=== PATIENT | female | born 1950 | race Caucasian/White ===

== ENCOUNTER 2017-06-03 06:39 | Inpatient (IN) | payer MEDICARE ==
[~2017-06-03] VITALS: Ht 167.6 cm; Wt 90.7 kg
--- NOTE | 2017-06-03 06:55 | NUR ---
RN NOTES PT ARRIVED ON TO THE UNIT AT 0655 VIA MEG. PT IS A DIRECT ADMISSION FROM [facility]. PT COMPLAINS OF X2DAYS OF SOB AND COUGH. WILL ENDORSE TO DAY SHIFT NURSE FOR ADMISSION.
[2017-06-03 07:00] VITALS: BP 124/71
--- NOTE | 2017-06-03 07:30 | NUR ---
tele sewing machine tester: admission admitted this 66 yr old female pt from [facility] with dx: copd exacerbation. awake, a/ox4. pt able to ambulate using fww of her own. on o2 at 2l/min via n/c. no c/o sob, chest pain, or any discomfort at this time. oriented to room and surroundings. pt has advance directive and wishes no resuscitation as stated. called krista lopez to faxed her advance directive. called coral ([facility]) re: admission, awaiting orders. tele [id number], inspector machine cut glass aware.
[2017-06-03 08:00] VITALS: BP 116/64
[2017-06-03] MEDS ORDERED: FAMO20TA8 PO (08:08)
[2017-06-03] MEDS ORDERED: ALBU2.5V38 IH (08:08)
[2017-06-03] MEDS ORDERED: IPRA0.2S49 IH (08:08)
[2017-06-03] MEDS ORDERED: LORA-259 PO (08:08)
[2017-06-03] MEDS ORDERED: DIGO125T PO (08:08)
[2017-06-03] MEDS ORDERED: SERT100T PO (08:08)
[2017-06-03] MEDS ORDERED: DILT240C94 PO (08:08)
[2017-06-03] MEDS ORDERED: NICO1PAT45 TD (08:08)
[2017-06-03] MEDS ORDERED: NEO/3.5O LEFTEYE (08:08)
[2017-06-03] MEDS ORDERED: THIA100T70 PO (08:08)
[2017-06-03] MEDS ORDERED: ALBU18HF2 IH (08:08)
[2017-06-03] MEDS ORDERED: APIX5TAB PO (08:08)
[2017-06-03] MEDS ORDERED: FOLI1TAB16 PO (08:08)
[2017-06-03] MEDS ORDERED: MAG HYDROX/AL HYDROX/SIMETH 30 ML UDC PO PRN (08:30)
[2017-06-03] MEDS ORDERED: HYDROCODONE/APAP 5/325MG 1 EACH TABLET PO PRN (08:30)
[2017-06-03] MEDS ORDERED: IPRATROPIUM NEB FS 0.5 MG/2.5 ML AMPUL.NEB NEB PRN (08:30)
[2017-06-03] MEDS ORDERED: ZOLPIDEM TARTRATE 5 MG TABLET PO PRN (08:30)
[2017-06-03] MEDS ORDERED: ALBUTEROL FS 2.5 MG/3 ML VIAL.NEB NEB PRN (08:30)
[2017-06-03] MEDS ORDERED: ACETAMINOPHEN 325 MG TABLET PO PRN (08:30)
[2017-06-03] MEDS ORDERED: ONDANSETRON HCL/PF 4 MG/2 ML VIAL IVP PRN (08:30)
[2017-06-03] MEDS ORDERED: ALBUTEROL FS 2.5 MG/3 ML VIAL.NEB IH PRN (09:30)
[2017-06-03] MEDS ORDERED: LORAZEPAM 1 MG TABLET PO PRN (09:30)
[2017-06-03] MEDS ORDERED: IPRATROPIUM NEB FS 0.5 MG/2.5 ML AMPUL.NEB IH PRN (09:30)
[2017-06-03] MEDS ORDERED: ALBUTEROL SULFATE 8 GM HFA.AER.AD IH PRN (09:30)
--- NOTE | 2017-06-03 09:30 | NUR ---
tele mapping analyst: cardio consult seen and examined by dr. cortez with new orders. orders acknowledged. tele remains afib=[phone]. will continue to monitor.
[2017-06-03 09:32] LABS: BASOPHILS # (AUTO) 0.1 /CMM (0.0-0.2); BASOPHILS % (AUTO) 0.8 % (0.0-2.0); HEMATOCRIT 42 % (33-45); HEMOGLOBIN 13.9 g/dL (11.5-14.8); LYMPHOCYTES # (AUTO) 0.2 /CMM (0.8-4.8); LYMPHOCYTES % (AUTO) 2.3 % (20.0-44.0); MEAN CORPUSCULAR HEMOGLOBIN 31 PG (26.0-33.0); MEAN CORPUSCULAR HGB CONC 33 g/dl (31.0-36.0); MEAN CORPUSCULAR VOLUME 94 fL (82-100); MONOCYTES % (AUTO) 0.3 % (2.0-12.0); NEUTROPHILS # (AUTO) 7.2 /CMM (1.8-8.9); NEUTROPHILS % (AUTO) 96.6 % (43.0-81.0); PLATELET COUNT (AUTO) 157 /CMM (150-450); RDW COEFFICIENT OF VARIATION 14.4 (11.5-15.0); RED BLOOD CELL COUNT(AUTO) 4.46 MIL/uL (4.0-5.2); WHITE BLOOD COUNT (AUTO) 7.5 K/uL (4.3-11.0)
[2017-06-03 09:59] LABS: CREATININE 1.2 mg/dL (0.6-1.3); POTASSIUM 4.4 mmol/L (3.5-5.1)
--- NOTE | 2017-06-03 10:00 | NUR ---
tele geothermal operations manager: notes called krista abraham once more and spoke to jesus, informed her that i haven't received her advance directive yet. jesus will re-fax her advance directive.
[2017-06-03 10:05] LABS: ALBUMIN 3.7 g/dL (3.4-5.0); BILIRUBIN,TOTAL 0.3 mg/dL (0.2-1.0); MAGNESIUM 2.5 mg/dL (1.8-2.4); PHOSPHORUS 4.1 mg/dL (2.5-4.9); TOTAL PROTEIN, SERUM 7.2 g/dL (6.4-8.2)
--- NOTE | 2017-06-03 10:08 | NUR ---
tele nurse special: notes dr. holcomb here and informed md re: pt wishes to be dnr and pt has advance directive from assisted living facility, but waiting for them to fax it over to us, stated, "i will put that in."
[2017-06-03] MEDS: FOLIC ACID 1 MG TABLET PO SCH (10:14)
[2017-06-03] MEDS: APIXABAN 5 MG TABLET PO SCH ×2 (10:14→16:32)
[2017-06-03] MEDS: DILTIAZEM HCL CD 240 MG PO SCH (10:15)
[2017-06-03] MEDS: THIAMINE HCL 100 MG TABLET PO SCH (10:15)
[2017-06-03] MEDS: FAMOTIDINE (20 MG) 20 MG TABLET PO SCH ×2 (10:15→16:32)
[2017-06-03] MEDS: methylPREDNISolone SOD SUCC 125 MG/2ML VIAL IV SCH ×3 (10:28→17:00)
--- NOTE | 2017-06-03 10:30 | NUR ---
tele directory assistance operator: md visit seen and examined by dr. holcomb and verified pt's wishes to be dnr/dni as stated by pt.
--- NOTE | 2017-06-03 10:40 | NUR ---
tele bag filler: notes f/u made again to jesus ([facility]) re: advance directive, stated, "the admin is not here today, i don't have it here, i just have her face sheet." informed her that we need that copy fax to us.
[2017-06-03] MEDS: NEO/POLY/DEXA OPHTH OINT 3.5 GM TUBE LEFTEYE SCH ×2 (11:18→16:33)
[2017-06-03] MEDS: DIGOXIN 0.125 MG TABLET PO SCH (11:18)
[2017-06-03] MEDS: IPRATROPIUM NEB FS 0.5 MG/2.5 ML AMPUL.NEB NEB SCH ×5 (11:39→22:37)
[2017-06-03] MEDS: ALBUTEROL FS 2.5 MG/3 ML VIAL.NEB NEB SCH ×5 (11:39→22:37)
--- NOTE | 2017-06-03 14:00 | NUR ---
tele water maintenance supervisor: notes resting comfortable in bed. instructed to call for assistance. will monitor.
[2017-06-03] MEDS: AZITHROMYCIN 500 MG in IV D5W 250 ML IV SCH (14:11)
[2017-06-03 16:00] VITALS: BP 140/89
--- NOTE | 2017-06-03 17:00 | NUR ---
tele [facility] sales: notes resting comfortable in bed with no distress noted. tele afib 98 controlled at this time. call light within reach. will monitor.
--- NOTE | 2017-06-03 18:50 | NUR ---
tele feedmobile driver: notes sitting up in bed. tele afib 86 controlled. needs attended. instructed to call for assistance. will monitor.
--- NOTE | 2017-06-03 19:30 | NUR ---
RN OPENING NOTES RECEIVED REPORT FROM DAYSHIFT RN. FOUND Pt AWAKE, RESTING IN BED, WATCHING TV. NO S/S OF ACUTE DISTRESS OR SOB NOTED. Pt IS A/OX3, VERBAL, ABLE TO MAKE NEEDS KNOWN. ON TELE MONITOR. IV ACCESS ON LAC #20G, SL. SAFETY MEASURES IN PLACE. BED LOW, LOCKED, HOB ELEVATED, SIDE RAILS UP, CALL LIGHT AND BEDSIDE TABLE WITHIN REACH. WILL CONTINUE TO MONITOR Pt THROUGHOUT THE NIGHT FOR SAFETY.
[2017-06-03 20:00] VITALS: BP 124/65
[2017-06-04] VITALS (22 sets, daily range): BP systolic 95–159; BP diastolic 47–90
[2017-06-04] MEDS: ALBUTEROL FS 2.5 MG/3 ML VIAL.NEB NEB SCH ×5 (03:16→20:03)
[2017-06-04] MEDS: IPRATROPIUM NEB FS 0.5 MG/2.5 ML AMPUL.NEB NEB SCH ×5 (03:16→20:03)
--- NOTE | 2017-06-04 06:30 | NUR ---
RN CLOSING NOTES NO SIGNIFICANT CHANGES IN Pt's CONDITION. Pt EXPERIENCED SOME SOB DURING THE NIGHT. HAD BREATHING TREATMENT NEEDED AND REQUESTED. ALL OTHER NEEDS MET AND ATTENDED TO. SAFETY MEASURES IN PLACE. TELE READING AFIB/AFLUTTER 90's-120's. WILL ENDORSE TO DAYSHIFT RN FOR Pt's CESAR.
[2017-06-04 06:46] LABS: CHOLESTEROL 246 mg/dL (<200); HDL CHOLESTEROL 60 mg/dL (40-60); LDL 175 mg/dL (0-99); TRIGLYCERIDES 38 mg/dL (30-150)
[2017-06-04 06:47] LABS: TROPONIN I < 0.017 ng/mL (0.00-0.056)
[2017-06-04 06:48] LABS: EOSINOPHILS % (AUTO) 0.3 % (0.0-6.0); HEMATOCRIT 45 % (33-45); HEMOGLOBIN 14.7 g/dL (11.5-14.8); LYMPHOCYTES # (AUTO) 0.3 /CMM (0.8-4.8); LYMPHOCYTES % (AUTO) 2.8 % (20.0-44.0); MEAN CORPUSCULAR HEMOGLOBIN 31 PG (26.0-33.0); MEAN CORPUSCULAR HGB CONC 33 g/dl (31.0-36.0); MEAN CORPUSCULAR VOLUME 96 fL (82-100); MONOCYTES # (AUTO) 0.2 /CMM (0.1-1.30); MONOCYTES % (AUTO) 1.9 % (2.0-12.0); NEUTROPHILS # (AUTO) 11.1 /CMM (1.8-8.9); PLATELET COUNT (AUTO) 166 /CMM (150-450); RDW COEFFICIENT OF VARIATION 14.8 (11.5-15.0); RED BLOOD CELL COUNT(AUTO) 4.72 MIL/uL (4.0-5.2); WHITE BLOOD COUNT (AUTO) 11.7 K/uL (4.3-11.0)
[2017-06-04 06:52] LABS: ALANINE AMINOTRANSFERASE 31 U/L (12-78); ALBUMIN 3.9 g/dL (3.4-5.0); ALKALINE PHOSPHATASE 93 U/L (46-116); ASPARTATE AMINOTRANSFERASE 28 U/L (15-37); BILIRUBIN,TOTAL 0.3 mg/dL (0.2-1.0); CALCIUM, SERUM 9.5 mg/dL (8.5-10.1); CARBON DIOXIDE 29 mmol/L (21-32); CHLORIDE 103 mmol/L (98-107); CREATININE 1.1 mg/dL (0.6-1.3); GLUCOSE 143 mg/dL (74-106); MAGNESIUM 2.4 mg/dL (1.8-2.4); PHOSPHORUS 5.1 mg/dL (2.5-4.9); POTASSIUM 5.3 mmol/L (3.5-5.1); SODIUM SERUM 139 mmol/L (136-145); TOTAL PROTEIN, SERUM 7.6 g/dL (6.4-8.2); UREA NITROGEN, BLOOD 20 mg/dL (7-18)
--- NOTE | 2017-06-04 07:14 | NUR ---
telecom manager initial notes Received patient in bed, awake, sitting at the edge of the bed, on 02 @ 3lpm via AK 02 sat of 95%. Alert and oriented x 4, verbally responsive and able to make needs known. On tele monitor Afib with heart rate of 128, no complaint of pain or discomfort at this time. IV intact and patent SL only. kept patient clean and comfortable in bed, call light with in patient reach, will continue to monitor accordingly.
[2017-06-04 07:54] LABS: ABG OXYGEN SATURATION 95.3 % (92.0-98.5); ABG PH 7.122 (7.350-7.450); ABG PO2 98.1 mmHg (75.0-100.0); AaDO2 95.1 mmHg; COHb 0.2 % (0.5-1.5); MetHb 0.4 % (0.0-1.5); O2Hb 94.7 % (94.0-97.0); SITE, ABG Right Radial; VENT MODE, BG NC 4L
[2017-06-04] MEDS: FAMOTIDINE (20 MG) 20 MG TABLET PO SCH ×2 (08:05→16:59)
[2017-06-04] MEDS: NICOTINE PATCH (14MG) 14 MG PATCH.TD24 TD SCH (08:05)
[2017-06-04] MEDS: methylPREDNISolone SOD SUCC 125 MG/2ML VIAL IV SCH ×5 (08:05→21:13)
[2017-06-04] MEDS: SERTRALINE HCL 50 MG TABLET PO SCH (08:05)
[2017-06-04] MEDS: THIAMINE HCL 100 MG TABLET PO SCH (08:05)
[2017-06-04] MEDS: FOLIC ACID 1 MG TABLET PO SCH (08:05)
[2017-06-04] MEDS: DILTIAZEM HCL CD 240 MG PO SCH (08:06)
[2017-06-04] MEDS: DIGOXIN 0.125 MG TABLET PO SCH (08:06)
[2017-06-04] MEDS: NEO/POLY/DEXA OPHTH OINT 3.5 GM TUBE LEFTEYE SCH ×2 (08:07→17:00)
[2017-06-04] MEDS: APIXABAN 5 MG TABLET PO SCH ×2 (08:07→17:00)
--- NOTE | 2017-06-04 09:19 | NUR ---
telephone technician notes Solumedrol dose given this morning already.
--- NOTE | 2017-06-04 09:25 | NUR ---
RT NOTE PT PLACED ON BIPAP PER MD ORDER. SETTINGS PRESCRIBED 25/09 RR 14 40%. PT AWAKE AND ALERT. ALARMS SET PER PROTOCOL AND AUDIBLE. BIPAP PLUGGED IN TO RED OUTLET. AMBU BAG AT BED SIDE. NO DISTRESS NOTED. WILL CONTINUE TO MONITOR. Addendum: 06/04/17 at 0926 by ALMA MURRELL RT Amended: Links added.
--- NOTE | 2017-06-04 10:30 | NUR ---
telephone switchboard operatorrn allergy notes Patient was seen by dr. Allen and Dr Rios and made aware about patient ABG stat result and made aware. Dr. Burnette on site and informed as weel and per MD's to transfer patient to ICU via bed accompanied by other RN and connected to heart monitor. Dr. Rios made aware about patient code status of DNR/DNI and ordered on file. RT put patient on BIPAP machine. Transferred patient to ICU and report given to Shantell and to continue care.
--- NOTE | 2017-06-04 10:33 | NUR ---
LINUX SERVER ADMINISTRATOR RECEIVED PATIENT FROM [facility], KRISTI RN GAVE REPORT ALERT ORIENTED X 3 NO PAIN NOTED SOB NOTED PLACED ON BIPAP, SETTING DONE BY ALMA HOBSON MONITORED CLOSELY
[2017-06-04 11:04] LABS: ABG BASE EXCESS -2.1 mmol/L; ABG OXYGEN SATURATION 97.2 % (92.0-98.5); ABG PCO2 72.5 mmHg (35.0-45.0); ABG PH 7.203 (7.350-7.450); ABG PO2 111.8 mmHg (75.0-100.0); COHb 0.1 % (0.5-1.5); MetHb 0.4 % (0.0-1.5); O2Hb 96.7 % (94.0-97.0); PEEP,BG 5 cm H2O; SITE, ABG Right Radial; VENT MODE, BG ST 15/5 RR 14 40%
[2017-06-04] MEDS: AZITHROMYCIN 500 MG in IV D5W 250 ML IV SCH (13:55)
--- NOTE | 2017-06-04 15:55 | NUR ---
RT NOTE BIPAP SETTINGS CHANGED TO 20/5 PER MD PELEG ORDER. RN NOTIFIED. PT STABLE. PT AWAKE AND ALERT. NO DISTRESS NOTED.
[2017-06-04 16:15] LABS: ABG BASE EXCESS -2.6 mmol/L; ABG OXYGEN SATURATION 97.9 % (92.0-98.5); ABG PCO2 59.1 mmHg (35.0-45.0); ABG PH 7.255 (7.350-7.450); AaDO2 84.2 mmHg; COHb 0.3 % (0.5-1.5); MetHb 0.5 % (0.0-1.5); O2Hb 97.1 % (94.0-97.0); SITE, ABG Right Radial; VENT MODE, BG ST 20/5 RR 14 40%
--- NOTE | 2017-06-04 18:40 | NUR ---
KING MAKER ABLE TO EAT SMALL AMOUNT OF FOOD MAINTAINED ON BIPAP BSS NOT YET AVAILABLE
--- NOTE | 2017-06-04 20:00 | NUR ---
WELDER MACHINE OPERATOR NOTE RECEIVED PT SITTING UP IN BED ON BIPAP. TOLERATING THE SETTINGS. NO DISTRESS OR DISCOMFORT NOTED. DENIES PAIN. LT EYE PERIORBITAL AREA SWOLLEN. EYE IS ALSO WITH ERYTHEMA LOWER EYE LID. ON TELE A FLUTTER/A FIB HR 70"S. PT DIDN'T ATE DINNER MUCH. RT AT BED SIDE GIVING BREATHING TX. SIDE RAILS UP X 2 AND CALL LIGHT WITHIN REACH. VSS. CONTINUE TO MONITOR HER.
[2017-06-04] MEDS: BALANCED SALT IRRIG SOLN COMB2 15 ML BOTTLE LEFTEYE SCH (20:07)
[2017-06-05] VITALS (46 sets, daily range): BP systolic 88–161; BP diastolic 47–106
[2017-06-05] MEDS: ALBUTEROL FS 2.5 MG/3 ML VIAL.NEB NEB SCH ×7 (00:06→23:45)
[2017-06-05] MEDS: IPRATROPIUM NEB FS 0.5 MG/2.5 ML AMPUL.NEB NEB SCH ×7 (00:06→23:45)
--- NOTE | 2017-06-05 02:30 | NUR ---
ANIMAL SHELTER MANAGER NOTE PT WOKE WITH SOB, RESTLESS, ASKING FOR BREATHING TX. RT PAGED. CONTINUE TO MONITOR HER. ALSO GAVE HER FLUIDS TO DRINK.
--- NOTE | 2017-06-05 03:00 | NUR ---
FILM EDITOR NOTE PT GAVE B TX. PT IS MORE RELAXED. DENIES ANY DISCOMFORT OR SOB. KEPT BIBHEAVEN ON. ON TELE A '. CONTINUE TO MONITOR HER. Addendum: 06/05/17 at 0633 by ANNIE PARRY RN RT GAVE B TX.
[2017-06-05 05:05] LABS: HEMATOCRIT 43 % (33-45); LYMPHOCYTES # (AUTO) 0.4 /CMM (0.8-4.8); LYMPHOCYTES % (AUTO) 2.2 % (20.0-44.0); MEAN CORPUSCULAR HEMOGLOBIN 31 PG (26.0-33.0); MEAN CORPUSCULAR HGB CONC 33 g/dl (31.0-36.0); MEAN CORPUSCULAR VOLUME 96 fL (82-100); MONOCYTES # (AUTO) 0.3 /CMM (0.1-1.30); MONOCYTES % (AUTO) 1.6 % (2.0-12.0); NEUTROPHILS # (AUTO) 15.7 /CMM (1.8-8.9); NEUTROPHILS % (AUTO) 96.2 % (43.0-81.0); PLATELET COUNT (AUTO) 155 /CMM (150-450); RDW COEFFICIENT OF VARIATION 14.9 (11.5-15.0); RED BLOOD CELL COUNT(AUTO) 4.47 MIL/uL (4.0-5.2); WHITE BLOOD COUNT (AUTO) 16.3 K/uL (4.3-11.0)
[2017-06-05 05:25] LABS: CALCIUM, SERUM 9.3 mg/dL (8.5-10.1); CREATININE 1.2 mg/dL (0.6-1.3); MAGNESIUM 2.5 mg/dL (1.8-2.4); PHOSPHORUS 4.7 mg/dL (2.5-4.9); POTASSIUM 5.7 mmol/L (3.5-5.1)
--- NOTE | 2017-06-05 06:33 | NUR ---
LOSS PREVENTION CONSULTANT NOTE PT IN BED ASLEEP IN HIGH SKINNER POSITION. REMAIN ON BIPAP. TOLERATING IT WELL, NO DISTRESS OR DISCOMFORT NOTED. ON MONITOR A FIB HR 88 CONTROLLED. SIDE RAILS UP X 2 AND CALL LIGHT WITHIN REACH. WILL ENDORSE TO DAY SHIFT NURSE FOR CONTINUE TO CARE.
--- NOTE | 2017-06-05 07:30 | NUR ---
WIND TECHNICIAN INITIAL NOTE RECEIVED PT SITTING UP IN BED ON BIPAP. TOLERATING THE SETTINGS. NO DISTRESS OR DISCOMFORT NOTED. DENIES PAIN. LT EYE PERIORBITAL AREA SWOLLEN. EYE IS ALSO WITH ERYTHEMA LOWER EYE LID. ON TELE MONITORING A-FIB 85 HR. SIDE RAILS UP X 2 AND CALL LIGHT WITHIN REACH. BED IN LOW AND LOCKED POSITION, WILL CONTINUE TO MONITOR.
[2017-06-05] MEDS ORDERED: IV NS 0.9% 1,000 ML IV PRN (07:46)
--- NOTE | 2017-06-05 08:40 | NUR ---
PARTY PLAN SALES HOST/HOSTESS NOTES PATIENT OFF BIPAP AT THIS TIME 4L NC TOLERATING WELL.
[2017-06-05] MEDS: SERTRALINE HCL 50 MG TABLET PO SCH (08:45)
[2017-06-05] MEDS: NICOTINE PATCH (14MG) 14 MG PATCH.TD24 TD SCH (08:45)
[2017-06-05] MEDS: FOLIC ACID 1 MG TABLET PO SCH (08:45)
[2017-06-05] MEDS: methylPREDNISolone SOD SUCC 125 MG/2ML VIAL IV SCH ×4 (08:45→21:00)
[2017-06-05] MEDS: THIAMINE HCL 100 MG TABLET PO SCH (08:46)
[2017-06-05] MEDS: FAMOTIDINE (20 MG) 20 MG TABLET PO SCH ×2 (08:46→17:37)
[2017-06-05] MEDS: APIXABAN 5 MG TABLET PO SCH ×2 (08:46→17:37)
[2017-06-05] MEDS: DIGOXIN 0.125 MG TABLET PO SCH (08:46)
[2017-06-05] MEDS: NEO/POLY/DEXA OPHTH OINT 3.5 GM TUBE LEFTEYE SCH ×2 (08:47→17:37)
[2017-06-05] MEDS: BALANCED SALT IRRIG SOLN COMB2 15 ML BOTTLE LEFTEYE SCH ×2 (08:47→17:37)
[2017-06-05] MEDS: DILTIAZEM HCL CD 240 MG PO SCH (09:00)
[2017-06-05 10:08] LABS: ABG BASE EXCESS 1.3 mmol/L; ABG OXYGEN SATURATION 95.2 % (92.0-98.5); ABG PCO2 56.9 mmHg (35.0-45.0); ABG PO2 86.2 mmHg (75.0-100.0); AaDO2 104.5 mmHg; COHb 0.3 % (0.5-1.5); MetHb 0.3 % (0.0-1.5); O2Hb 94.6 % (94.0-97.0); SITE, ABG Right Radial; VENT MODE, BG N/C 4L/MIN
--- NOTE | 2017-06-05 10:10 | NUR ---
GROUP LEADER SEMICONDUCTOR PROCESSING NOTES PATIENTS ABG DONE, DR RODAS AWARE, OK TO KEEP BIPAP OFF.
--- NOTE | 2017-06-05 10:39 | NUR ---
FINANCIAL SERVICES CONSULTANT NOTES PATIENTS REQUESTING TO BE BACK ON BIPAP, ANXIOUS ABOUT HER BREATHING. DR ANN AWARE AND SEEN PATIENT AT BEDSIDE.
[2017-06-05] MEDS ORDERED: IV NS 0.9% 1,000 ML BAG IV ONE (11:00)
[2017-06-05] MEDS: AZITHROMYCIN 500 MG in IV D5W 250 ML IV SCH (12:07)
--- NOTE | 2017-06-05 19:00 | NUR ---
COLOR STRIPPER END NOTES REPORT GIVEN TO GOKUL GRAFF FOR CONTINUITY OF CARE, ALL NEEDS ATTENDED TO, PATIENT CLEANED. ON BIPAP TOLERATING SETTINGS.
--- NOTE | 2017-06-05 19:30 | NUR ---
ICU/RN. RECEIVED PT.SITTING ON BED,ON BIPAP RATE OF 14,REQUESTING FOR BREATHING TREATMENT FOR SHORTNESS OF BREATH.LUNGS SOUND DIMINISHED THROUGHOUT.MONITOR SHOWS AFIB
--- NOTE | 2017-06-05 20:23 | NUR ---
PT IS AWAKE AND ALERT ON BIPAP. NO RESP DISTRESS. PT TOLERATING SETTINGS. PT IS RECEIVING Q4 BREATHING TX. BIPAP ALARMS SET AND AUDIBLE. AMBU BAG AT BEDSIDE. BIPAP PLUGGED INTO RED OUTLET. WILL CONTINUE TO MONITOR. Addendum: 06/05/17 at 2023 by CORY LOPEZ RT Amended: Links added.
[2017-06-06] VITALS (31 sets, daily range): BP systolic 103–132; BP diastolic 60–86
[2017-06-06] MEDS: ALBUTEROL FS 2.5 MG/3 ML VIAL.NEB NEB SCH ×6 (03:30→23:33)
[2017-06-06] MEDS: IPRATROPIUM NEB FS 0.5 MG/2.5 ML AMPUL.NEB NEB SCH ×6 (03:30→23:33)
[2017-06-06 05:09] LABS: HEMATOCRIT 42 % (33-45); HEMOGLOBIN 13.6 g/dL (11.5-14.8); LYMPHOCYTES # (AUTO) 0.4 /CMM (0.8-4.8); LYMPHOCYTES % (AUTO) 2.5 % (20.0-44.0); MEAN CORPUSCULAR HEMOGLOBIN 31 PG (26.0-33.0); MEAN CORPUSCULAR HGB CONC 33 g/dl (31.0-36.0); MEAN CORPUSCULAR VOLUME 95 fL (82-100); MONOCYTES # (AUTO) 0.2 /CMM (0.1-1.30); MONOCYTES % (AUTO) 1.4 % (2.0-12.0); NEUTROPHILS % (AUTO) 96.1 % (43.0-81.0); PLATELET COUNT (AUTO) 149 /CMM (150-450); RDW COEFFICIENT OF VARIATION 14.4 (11.5-15.0); RED BLOOD CELL COUNT(AUTO) 4.38 MIL/uL (4.0-5.2); WHITE BLOOD COUNT (AUTO) 16.7 K/uL (4.3-11.0)
[2017-06-06 05:24] LABS: ALBUMIN 3.3 g/dL (3.4-5.0); BILIRUBIN,TOTAL 0.2 mg/dL (0.2-1.0); CALCIUM, SERUM 8.9 mg/dL (8.5-10.1); CREATININE 1.1 mg/dL (0.6-1.3); MAGNESIUM 2.3 mg/dL (1.8-2.4); PHOSPHORUS 3.6 mg/dL (2.5-4.9); POTASSIUM 4.6 mmol/L (3.5-5.1); TOTAL PROTEIN, SERUM 6.3 g/dL (6.4-8.2)
--- NOTE | 2017-06-06 07:00 | NUR ---
ICU/RN SLEPT MOST OF THE NOC FR.12M/N TO 0600.SITTING UPRIGHT IN BED,C/O SHORTNESS OF BREATH AND WANTING BREATHING [place].0705 RT AT BEDSIDE.MONITOR SHOWS AFIBW/ RVRESP WHEN PT IS MOVING IN BED.
--- NOTE | 2017-06-06 08:30 | NUR ---
PATIENT REMOVED FROM BIPAP AND PLACED ON 3L N/C JODIE WELL.
[2017-06-06] MEDS: methylPREDNISolone SOD SUCC 125 MG/2ML VIAL IV SCH ×4 (09:05→20:59)
[2017-06-06] MEDS: DILTIAZEM HCL CD 240 MG PO SCH (09:05)
[2017-06-06] MEDS: SERTRALINE HCL 50 MG TABLET PO SCH (09:05)
[2017-06-06] MEDS: THIAMINE HCL 100 MG TABLET PO SCH (09:05)
[2017-06-06] MEDS: FAMOTIDINE (20 MG) 20 MG TABLET PO SCH ×2 (09:05→17:23)
[2017-06-06] MEDS: FOLIC ACID 1 MG TABLET PO SCH (09:05)
[2017-06-06] MEDS: APIXABAN 5 MG TABLET PO SCH ×2 (09:06→17:23)
[2017-06-06] MEDS: DIGOXIN 0.125 MG TABLET PO SCH (09:06)
[2017-06-06] MEDS: NICOTINE PATCH (14MG) 14 MG PATCH.TD24 TD SCH (09:11)
[2017-06-06] MEDS: BALANCED SALT IRRIG SOLN COMB2 15 ML BOTTLE LEFTEYE SCH ×2 (09:11→17:24)
[2017-06-06] MEDS: NEO/POLY/DEXA OPHTH OINT 3.5 GM TUBE LEFTEYE SCH ×2 (09:11→17:24)
--- NOTE | 2017-06-06 09:11 | NUR ---
RN NOTES PT OFF BIPAP. ON O2 3LPM VIA NC AT THIS TIME. SATING 96%. PT NOTED WITH SOME SHORTNESS OF BREATH, BUT VERBALIZED SHE'S FINE. WILL MONITOR CLOSELY
--- NOTE | 2017-06-06 09:30 | NUR ---
RN NOTES DR RODAS AT BEDSIDE. PT WAS SEEN AND EVLAUATED. PT ON O2@3LPM VIA NC. SATING 94-97% AT THIS TIME. AFIB 120'S ON QUARTZ MINER. MD DISCUSSED PLAN OF CARE TO PT. PER DR RODAS KEEP ON NC TOLERATED, AND CHECK ABG SHORTLY.
[2017-06-06] MEDS: AZITHROMYCIN 500 MG in IV D5W 250 ML IV SCH (12:22)
[2017-06-06 13:24] LABS: ABG BASE EXCESS 1.1 mmol/L; ABG OXYGEN SATURATION 95.7 % (92.0-98.5); ABG PH 7.362 (7.350-7.450); ABG PO2 82.7 mmHg (75.0-100.0); AaDO2 88.1 mmHg; COHb 0.3 % (0.5-1.5); MetHb 0.3 % (0.0-1.5); O2Hb 95.1 % (94.0-97.0); SITE, ABG Right Radial; VENT MODE, BG NASAL CANNULA
--- NOTE | 2017-06-06 13:28 | NUR ---
RT NOTE: ABG RESULTS SHOWN TO . WILL KEEP PATIENT OFF BIPAP DURING THE DAY. PER MD PATIENT IS TO BE PLACED ON BIPAP AT NIGHT AND PRN. WILL ENDORSE TO NIGHT RT.
[2017-06-06] MEDS ORDERED: NEOMY SULF/BACITRAC ZN/POLY 15 GM TUBE TP PRN (16:30)
--- NOTE | 2017-06-06 19:30 | NUR ---
RECEIVED PATIENT SITTING IN BED, PATIENT IS AAO, CURRENTLY ON 3L VIA NASAL CANNULA. CONTINUE TO MONITOR
--- NOTE | 2017-06-06 20:30 | NUR ---
PATIENT VERBALIZED SOB, AND ASKED FOR RESPIRATORY TREATMENT, RT NOTIFIED
--- NOTE | 2017-06-06 20:33 | NUR ---
PT RECEIVED ON NC 3L. PT IS AWAKE AND ALERT. GAVE BREATHING TX AND AFTER TX PT ASKED TO BE PLACED BACK ON BIPAP DO TO SOB. Addendum: 06/06/17 at 2034 by CORY LOPEZ RT Amended: Links added.
[2017-06-06] MEDS: MUPIROCIN OINT 2% 22 GM TUBE SCH (21:00)
--- NOTE | 2017-06-06 21:00 | NUR ---
PATIENT IS PLACED ON BIPAP ORDERED NIGHTLY, SCHEDULED MEDICATIONS GIVEN. EDUCATION/INSTRUCTIONS GIVEN . CALL LIGHT WITHIN REACH INSTRUCTED TO CALL FOR ANY ASSISTANCE
[2017-06-07] VITALS (30 sets, daily range): BP systolic 104–157; BP diastolic 53–107
[2017-06-07] MEDS: IPRATROPIUM NEB FS 0.5 MG/2.5 ML AMPUL.NEB NEB SCH ×7 (03:12→23:42)
[2017-06-07] MEDS: ALBUTEROL FS 2.5 MG/3 ML VIAL.NEB NEB SCH ×7 (03:12→23:42)
[2017-06-07 05:30] LABS: HEMATOCRIT 44 % (33-45); HEMOGLOBIN 14.4 g/dL (11.5-14.8); LYMPHOCYTES # (AUTO) 0.6 /CMM (0.8-4.8); LYMPHOCYTES % (AUTO) 4.7 % (20.0-44.0); MEAN CORPUSCULAR HEMOGLOBIN 32 PG (26.0-33.0); MEAN CORPUSCULAR HGB CONC 33 g/dl (31.0-36.0); MEAN CORPUSCULAR VOLUME 95 fL (82-100); MONOCYTES # (AUTO) 0.2 /CMM (0.1-1.30); MONOCYTES % (AUTO) 1.5 % (2.0-12.0); NEUTROPHILS # (AUTO) 12.5 /CMM (1.8-8.9); NEUTROPHILS % (AUTO) 93.8 % (43.0-81.0); PLATELET COUNT (AUTO) 145 /CMM (150-450); RDW COEFFICIENT OF VARIATION 14.7 (11.5-15.0); RED BLOOD CELL COUNT(AUTO) 4.58 MIL/uL (4.0-5.2); WHITE BLOOD COUNT (AUTO) 13.4 K/uL (4.3-11.0)
[2017-06-07 05:37] LABS: CREATININE 1.1 mg/dL (0.6-1.3); POTASSIUM 4.5 mmol/L (3.5-5.1)
--- NOTE | 2017-06-07 07:00 | NUR ---
RN NOTES RECEIVED PT ON BED, A/Ox4, ON BIPAP AT THIS TIME , RENUKA DOMINGUEZ, ON TELE A.FIB HR IN 90'S , O2 SAT 98%, SR UP x3, CALL LIGHTS WITHIN EASY REACH, CONTINUE TO MONITOR CLSOELY .
[2017-06-07] MEDS: MUPIROCIN OINT 2% 22 GM TUBE SCH ×2 (08:07→21:17)
[2017-06-07] MEDS: BALANCED SALT IRRIG SOLN COMB2 15 ML BOTTLE LEFTEYE SCH ×2 (08:08→16:18)
[2017-06-07] MEDS: NEO/POLY/DEXA OPHTH OINT 3.5 GM TUBE LEFTEYE SCH ×2 (08:09→16:18)
[2017-06-07] MEDS: SERTRALINE HCL 50 MG TABLET PO SCH (08:09)
[2017-06-07] MEDS: DILTIAZEM HCL CD 240 MG PO SCH (08:11)
[2017-06-07] MEDS: THIAMINE HCL 100 MG TABLET PO SCH (08:11)
[2017-06-07] MEDS: DIGOXIN 0.125 MG TABLET PO SCH (08:12)
[2017-06-07] MEDS: FAMOTIDINE (20 MG) 20 MG TABLET PO SCH ×2 (08:12→16:17)
[2017-06-07] MEDS: methylPREDNISolone SOD SUCC 125 MG/2ML VIAL IV SCH ×4 (08:12→21:13)
[2017-06-07] MEDS: NICOTINE PATCH (14MG) 14 MG PATCH.TD24 TD SCH (08:13)
[2017-06-07] MEDS: APIXABAN 5 MG TABLET PO SCH ×2 (08:14→16:18)
[2017-06-07] MEDS: FOLIC ACID 1 MG TABLET PO SCH (08:14)
--- NOTE | 2017-06-07 11:00 | NUR ---
RN NOTES PT IS OUT OF BED TO BEDSIDE COMMODE, NO DISTRESS NOTED . CONTINUE TO MONITOR .
[2017-06-07] MEDS: AZITHROMYCIN 500 MG in IV D5W 250 ML IV SCH (11:40)
[2017-06-07] MEDS: GUAIFENESIN LA 600 MG TABLET.SA PO SCH ×2 (14:33→21:19)
--- NOTE | 2017-06-07 14:36 | NUR ---
RN NOTES DR RODAS NOTIFIED REGARDING ABG RESULTS , NO NEW ORDER GIVEN . CONTINUE TO MONITOR .
--- NOTE | 2017-06-07 15:00 | NUR ---
RN NOTES PT ON 3L O2 N/C , ENCOURAGED DEEP AND SLOW BREATHING , STATED FEEL MUCH BETTER THAT A FEW DAYS AGO , NO DISTRESS NOTED .
[2017-06-07 15:02] LABS: ABG BASE EXCESS 2.9 mmol/L; ABG OXYGEN SATURATION 96.1 % (92.0-98.5); ABG PH 7.375 (7.350-7.450); ABG PO2 86.2 mmHg (75.0-100.0); AaDO2 67.8 mmHg; COHb 0.2 % (0.5-1.5); MetHb 0.3 % (0.0-1.5); O2Hb 95.6 % (94.0-97.0); VENT MODE, BG N-C
[2017-06-07] MEDS ORDERED: ACETYLCYSTEINE 10% SOLN 400 MG/4 ML VIAL NEB SCH (15:30)
--- NOTE | 2017-06-07 18:00 | NUR ---
RN NOTES NO SOB NOTED, L AC AND AND R HAND IV SITE G 20 CDI, RESTING IN BED , ON 3L O2 N/C , SR UP x3, BED LOCKED AND IN LOWEST POSITION , WILL ENDORSE TO ADMINISTRATIVE UNDERWRITER NURSE FOR CESAR.
--- NOTE | 2017-06-07 19:30 | NUR ---
ICU/RN RECEIVED PT AWAKE ALERT SITTING ON SIDE OF BED,RECEIVING BREATHING TX.PLACED ON N/C 3LPM AFTER.OFFERS NO COMPLAINTS,DENIES SHORTNESS OF BREATH.MONITOR A-FIB W/ RVR KSENIA.WHEN PT MOVES IN BED,RATE 109-128/MIN.
--- NOTE | 2017-06-07 23:40 | NUR ---
ICU/RN PLACED ON BIPAP PER PT'S REQUEST,RATE OF 14,40%.
[2017-06-08] VITALS (21 sets, daily range): BP systolic 97–154; BP diastolic 60–96
[2017-06-08] MEDS: IPRATROPIUM NEB FS 0.5 MG/2.5 ML AMPUL.NEB NEB SCH ×6 (03:54→23:09)
[2017-06-08] MEDS: ALBUTEROL FS 2.5 MG/3 ML VIAL.NEB NEB SCH ×6 (03:54→23:09)
--- NOTE | 2017-06-08 04:29 | NUR ---
PT IS AWAKE AND ALERT ON BIPAP. NO RESP DISTRESS. PT TOLERATING SETTINGS. PT IS RECEIVING Q4 BREATHING TX. BIPAP ALARMS SET AND AUDIBLE. AMBU BAG AT BEDSIDE. BIPAP PLUGGED INTO RED OUTLET. WILL CONTINUE TO MONITOR. Addendum: 06/08/17 at 0430 by KYLE WITT RT Amended: Links added.
[2017-06-08 04:58] LABS: BASOPHILS % (AUTO) 0.1 % (0.0-2.0); HEMATOCRIT 41 % (33-45); HEMOGLOBIN 13.7 g/dL (11.5-14.8); LYMPHOCYTES # (AUTO) 0.5 /CMM (0.8-4.8); MEAN CORPUSCULAR HEMOGLOBIN 31 PG (26.0-33.0); MEAN CORPUSCULAR HGB CONC 33 g/dl (31.0-36.0); MEAN CORPUSCULAR VOLUME 95 fL (82-100); MONOCYTES # (AUTO) 0.2 /CMM (0.1-1.30); NEUTROPHILS # (AUTO) 10.8 /CMM (1.8-8.9); NEUTROPHILS % (AUTO) 93.9 % (43.0-81.0); PLATELET COUNT (AUTO) 132 /CMM (150-450); RDW COEFFICIENT OF VARIATION 14.5 (11.5-15.0); RED BLOOD CELL COUNT(AUTO) 4.35 MIL/uL (4.0-5.2); WHITE BLOOD COUNT (AUTO) 11.5 K/uL (4.3-11.0)
[2017-06-08 05:03] LABS: CALCIUM, SERUM 8.6 mg/dL (8.5-10.1); CREATININE 0.9 mg/dL (0.6-1.3); POTASSIUM 5.3 mmol/L (3.5-5.1)
[2017-06-08 05:54] LABS: BAND % (MANUAL) 1 % (0.0-5.0); LYMPHOCYTES % (MANUAL) 2 % (16-48); MONOCYTES % (MANUAL) 3 % (0-11.0); NEUTROPHILS % (MANUAL) 94 (42-76)
--- NOTE | 2017-06-08 06:00 | NUR ---
ICU/RN PT SLEPT FROM 12M/N-0630.TOLERATING BIPAP WELL.REFUSING BATH AT THIS TIME.MONITOR UNCHANGED
--- NOTE | 2017-06-08 08:05 | NUR ---
RN NOTES RECEIVED PT IN BED. CURRENTLY ON BIPAP. AFEBRILE. NO ACUTE DISTRESS NOTED. AFIB ON HAND WORKER HR 87. IV SITES CDI, FLUSHED WITH NS PATENT. KEPT COMFORTABLE. WILL CONT TO MONITOR.
[2017-06-08] MEDS: APIXABAN 5 MG TABLET PO SCH ×2 (08:39→17:38)
[2017-06-08] MEDS: BALANCED SALT IRRIG SOLN COMB2 15 ML BOTTLE LEFTEYE SCH ×2 (08:40→17:38)
[2017-06-08] MEDS: NEO/POLY/DEXA OPHTH OINT 3.5 GM TUBE LEFTEYE SCH ×2 (08:40→17:38)
[2017-06-08] MEDS: MUPIROCIN OINT 2% 22 GM TUBE SCH ×2 (08:41→21:48)
[2017-06-08] MEDS: methylPREDNISolone SOD SUCC 125 MG/2ML VIAL IV SCH ×4 (08:47→21:46)
[2017-06-08] MEDS: NICOTINE PATCH (14MG) 14 MG PATCH.TD24 TD SCH (08:47)
[2017-06-08] MEDS: THIAMINE HCL 100 MG TABLET PO SCH (10:03)
[2017-06-08] MEDS: FOLIC ACID 1 MG TABLET PO SCH (10:03)
[2017-06-08] MEDS: SERTRALINE HCL 50 MG TABLET PO SCH (10:04)
[2017-06-08] MEDS: FAMOTIDINE (20 MG) 20 MG TABLET PO SCH ×2 (10:04→17:38)
[2017-06-08] MEDS: DILTIAZEM HCL CD 240 MG PO SCH (10:05)
[2017-06-08] MEDS: DIGOXIN 0.125 MG TABLET PO SCH (10:05)
[2017-06-08] MEDS: GUAIFENESIN LA 600 MG TABLET.SA PO SCH ×2 (10:07→21:48)
--- NOTE | 2017-06-08 12:30 | NUR ---
RN NOTES PT SEEN BY DR RODAS AT BEDSIDE, PT WAS EVALUATED. VS STABLE AFIB ON MONITOR. PER DR RODAS OK TO TRANSFER TO [facility].
--- NOTE | 2017-06-08 13:40 | NUR ---
RN NOTES PT RANSFERRED TO [facility] ROOM 107-1 [place] GIVEN TO NURSE CONTRERAS FOR CONTINUITY OF CARE. ALL BELONGINGS SENT WITH PATIENT. NO ACUTE CHANGE IN CONDITION. PT STABLE AT THIS TIME.
--- NOTE | 2017-06-08 19:10 | NUR ---
RN INITIAL NOTES RECEIVED PATIENT ON 2LPM OF O2 VIA NC, PATIENT EXHIBITS SOB WITH EXERTION. REST PERIODS ENCOURAGED. PATIENT COMPLAINING OF CHEST TIGHTNESS AND INABILITY TO EXPECTORATE, NON PRODUCTIVE COUGH NOTED. DIMINISHED BREATH SOUNDS THROUGHOUT WITH WHEEZING ON LEFT UPPER LOBE. BREATHING TREATMENT COORDINATED WITH RT SCHEDULED. PATIENT'S NEEDS ANTICIPATED AND MET. SAFETY AND COMFORT ENSURED. BED IN LOW AND LOCKED POSITION. CALL LIGHT IN REACH. Addendum: 06/09/17 at 0332 by EDUARDA HORVATH RN AFIB AT 78.
--- NOTE | 2017-06-08 19:25 | NUR ---
PATIENT TOLERATED TREATMENT TO LEFT EYE. NO SX/SX OF CARDIO PULMONARY DISTRESS NOTED AT THIS POINT AND TIME.
--- NOTE | 2017-06-08 23:14 | NUR ---
RN NOTES PATIENT PLACED ON BIPAP, Fi02 OF 35%. PATIENT WITH DIFFICULTY COUGHING OUT SECRETIONS, NON-PRODUCTIVE COUGH, PATIENT COMPLAINING OF CHEST TIGHTNESS. BREATHING TREATMENT ORDERED. WILL CONTINUE TO MONITOR.
[2017-06-09] VITALS (7 sets, daily range): BP systolic 117–141; BP diastolic 69–87
[2017-06-09] MEDS: ALBUTEROL FS 2.5 MG/3 ML VIAL.NEB NEB SCH ×5 (03:03→23:27)
[2017-06-09] MEDS: IPRATROPIUM NEB FS 0.5 MG/2.5 ML AMPUL.NEB NEB SCH ×5 (03:03→23:27)
[2017-06-09 06:36] LABS: HEMATOCRIT 41 % (33-45); HEMOGLOBIN 13.7 g/dL (11.5-14.8); LYMPHOCYTES # (AUTO) 0.6 /CMM (0.8-4.8); LYMPHOCYTES % (AUTO) 4.6 % (20.0-44.0); MEAN CORPUSCULAR HEMOGLOBIN 32 PG (26.0-33.0); MEAN CORPUSCULAR HGB CONC 33 g/dl (31.0-36.0); MEAN CORPUSCULAR VOLUME 94 fL (82-100); MONOCYTES # (AUTO) 0.2 /CMM (0.1-1.30); MONOCYTES % (AUTO) 1.2 % (2.0-12.0); NEUTROPHILS # (AUTO) 12.1 /CMM (1.8-8.9); NEUTROPHILS % (AUTO) 94.2 % (43.0-81.0); PLATELET COUNT (AUTO) 136 /CMM (150-450); RDW COEFFICIENT OF VARIATION 14.3 (11.5-15.0); RED BLOOD CELL COUNT(AUTO) 4.35 MIL/uL (4.0-5.2); WHITE BLOOD COUNT (AUTO) 12.9 K/uL (4.3-11.0)
--- NOTE | 2017-06-09 06:40 | NUR ---
RN CLOSING NOTES PATIENT WITH NO ACUTE DISTRESS OBSERVED OVERNIGHT. SLEPT COMFORTABLY WITH BIPAP IN PLACE. AFIB-AFLUTTER WITH HR AT 80. SAFETY AND COMFORT AND ENSURED. NEEDS ANTICIPATED AND MET. CALL LIGHT KEPT WITHIN REACH. WILL ENDORSE ACCORDINGLY FOR CONTINUITY OF CARE.
[2017-06-09 06:48] LABS: CALCIUM, SERUM 8.6 mg/dL (8.5-10.1); CREATININE 0.8 mg/dL (0.6-1.3); POTASSIUM 4.5 mmol/L (3.5-5.1)
[2017-06-09] MEDS: methylPREDNISolone SOD SUCC 125 MG/2ML VIAL IV SCH ×4 (09:07→21:09)
[2017-06-09] MEDS: FOLIC ACID 1 MG TABLET PO SCH (09:08)
[2017-06-09] MEDS: SERTRALINE HCL 50 MG TABLET PO SCH (09:08)
[2017-06-09] MEDS: GUAIFENESIN LA 600 MG TABLET.SA PO SCH ×2 (09:08→21:09)
[2017-06-09] MEDS: FAMOTIDINE (20 MG) 20 MG TABLET PO SCH ×2 (09:08→17:20)
[2017-06-09] MEDS: NICOTINE PATCH (14MG) 14 MG PATCH.TD24 TD SCH (09:12)
[2017-06-09] MEDS: DIGOXIN 0.125 MG TABLET PO SCH (09:12)
[2017-06-09] MEDS: DILTIAZEM HCL CD 240 MG PO SCH (09:12)
[2017-06-09] MEDS: THIAMINE HCL 100 MG TABLET PO SCH (09:13)
[2017-06-09] MEDS: MUPIROCIN OINT 2% 22 GM TUBE SCH ×2 (09:14→21:10)
[2017-06-09] MEDS: BALANCED SALT IRRIG SOLN COMB2 15 ML BOTTLE LEFTEYE SCH ×2 (09:14→17:23)
[2017-06-09] MEDS: NEO/POLY/DEXA OPHTH OINT 3.5 GM TUBE LEFTEYE SCH ×2 (09:14→17:25)
[2017-06-09] MEDS: APIXABAN 5 MG TABLET PO SCH ×2 (09:14→17:20)
--- NOTE | 2017-06-09 14:28 | NUR ---
CLOTHING BUSHELER NOTES RECEIVED PATIENT IN STABLE CONDITION, IN BED RESTING. NO ACUTE DISTRESS, NO SOB NOTED. DENIES PAIN OR DISCOMFORT AT THE MOMENT. IV SITE INTACT AND PATENT. KEPT SAFE AND COMFORTABLE. BED LOCKED, LOW POSITION, SIDERAILS UPX2, CALL LIGHT IN REACH. WILL CONTINUE TO MONITOR ACCORDINGLY
--- NOTE | 2017-06-09 19:30 | NUR ---
RN CLOSING NOTES PATIENT IN BED RESTING. NO ACUTE DISTRESS, NO SOB NOTED. ALL NEEDS ATTENDED AND PROVIDED. KEPT PATIENT SAFE AND COMFORTABLE. BED IN LOW/LOCKED POSITION, SIDERAILS UPX2, CALL LIGHT IN REACH. ENDORSED TO NIGHT RN FOR CESAR.
[2017-06-10] VITALS: BP 113/75
[2017-06-10] MEDS: IPRATROPIUM NEB FS 0.5 MG/2.5 ML AMPUL.NEB NEB SCH ×6 (03:49→23:12)
[2017-06-10] MEDS: ALBUTEROL FS 2.5 MG/3 ML VIAL.NEB NEB SCH ×6 (03:49→23:12)
[2017-06-10 04:00] VITALS: BP 130/86
[2017-06-10 06:38] LABS: HEMATOCRIT 42 % (33-45); HEMOGLOBIN 13.9 g/dL (11.5-14.8); LYMPHOCYTES # (AUTO) 0.6 /CMM (0.8-4.8); LYMPHOCYTES % (AUTO) 4.2 % (20.0-44.0); MEAN CORPUSCULAR HEMOGLOBIN 31 PG (26.0-33.0); MEAN CORPUSCULAR HGB CONC 33 g/dl (31.0-36.0); MEAN CORPUSCULAR VOLUME 94 fL (82-100); MONOCYTES # (AUTO) 0.1 /CMM (0.1-1.30); MONOCYTES % (AUTO) 0.9 % (2.0-12.0); NEUTROPHILS # (AUTO) 12.9 /CMM (1.8-8.9); NEUTROPHILS % (AUTO) 94.9 % (43.0-81.0); PLATELET COUNT (AUTO) 137 /CMM (150-450); RDW COEFFICIENT OF VARIATION 14.1 (11.5-15.0); RED BLOOD CELL COUNT(AUTO) 4.49 MIL/uL (4.0-5.2); WHITE BLOOD COUNT (AUTO) 13.6 K/uL (4.3-11.0)
[2017-06-10 06:55] LABS: CALCIUM, SERUM 8.5 mg/dL (8.5-10.1); CREATININE 0.9 mg/dL (0.6-1.3); POTASSIUM 4.2 mmol/L (3.5-5.1)
--- NOTE | 2017-06-10 07:30 | NUR ---
RN OPENING NOTES RECEIVED PATIENT RESTING COMFORTABLY IN BED. PATIENT USING CPAP AT NIGHT. AOX3L. ON TELE MONITOR READING AFIB TACHY. IV ACCESS PATENT AND INTACT ON THE LAC AND R HAND BOTH 20 G PATENT AND INTACT. RESPIRATIONS EVEN AND UNLABORED. PATIENT DENIES ANY CP, SOB OR ANY TYPE OF PAIN. NO ACUTE DISTRESS AT THIS TIME. BED LOCKED IN THE LOWEST POSITION WITH SIDE RAILS UP X2. CALL LIGHT WITHIN REACH. WILL CONTINUE TO MONITOR, ASSESS AND EDUCATE PATIENT THROUGHOUT SHIFT.
[2017-06-10 08:00] VITALS: BP 132/82
[2017-06-10] MEDS: NICOTINE PATCH (14MG) 14 MG PATCH.TD24 TD SCH (10:47)
[2017-06-10] MEDS: methylPREDNISolone SOD SUCC 125 MG/2ML VIAL IV SCH ×4 (10:47→20:33)
[2017-06-10] MEDS: GUAIFENESIN LA 600 MG TABLET.SA PO SCH ×2 (10:47→20:33)
[2017-06-10] MEDS: DIGOXIN 0.125 MG TABLET PO SCH (10:48)
[2017-06-10] MEDS: FOLIC ACID 1 MG TABLET PO SCH (10:49)
[2017-06-10] MEDS: SERTRALINE HCL 50 MG TABLET PO SCH (10:49)
[2017-06-10] MEDS: FAMOTIDINE (20 MG) 20 MG TABLET PO SCH ×2 (10:49→18:29)
[2017-06-10] MEDS: DILTIAZEM HCL CD 240 MG PO SCH (10:49)
[2017-06-10] MEDS: THIAMINE HCL 100 MG TABLET PO SCH (10:49)
[2017-06-10] MEDS: BALANCED SALT IRRIG SOLN COMB2 15 ML BOTTLE LEFTEYE SCH ×2 (10:50→18:30)
[2017-06-10] MEDS: MUPIROCIN OINT 2% 22 GM TUBE SCH ×2 (10:50→20:33)
[2017-06-10] MEDS: APIXABAN 5 MG TABLET PO SCH ×2 (10:51→18:29)
[2017-06-10] MEDS: NEO/POLY/DEXA OPHTH OINT 3.5 GM TUBE LEFTEYE SCH ×2 (10:52→18:31)
[2017-06-10 12:00] VITALS: BP 109/67
[2017-06-10] MEDS ORDERED: IV NS 0.9% 1,000 ML BAG IV PRN (14:00)
[2017-06-10] MEDS: IV NS 0.9% 1,000 ML IV PRN (14:17)
[2017-06-10 16:00] VITALS: BP 114/67
--- NOTE | 2017-06-10 19:30 | NUR ---
RN CLOSING NOTES PATIENT IN STABLE CONDITION. DENIES SOB. NO CP. AOX4. SATURATING ADEQUATELY ON 3LPM. NO ACUTE DISTRESS. RESPIRATIONS EVEN AND UNLABORED. DENIES SOB AND CP. NEEDS MET ALL MEDS GIVEN. BED LOCKED IN THE LOWEST POSITION WITH SIDE RAILS UP X2. CALL LIGHT WITH IN REACH. WILL ENDORSE TO NIGHT RN FOR CESAR.
[2017-06-10 20:00] VITALS: BP 122/74
--- NOTE | 2017-06-10 21:54 | NUR ---
RN OPENING NOTES RECEIVED PT ALERT, AWAKE,VERBALLY RESPONSIVE,ON O2 VIA N/C AT 3L/MIN, RESPIRATIONS EVEN, UNLABORED,NO APPARENT DISTRESS NOTED. DENIES ANY PAIN OR DISCOMFORT AT THIS TIME. IV SITE INTACT, PATENT. CALL LIGHT WITHIN REACH.KEPT CLEAN AND COMFORTABLE,ATTENDED ALL NEEDS.BED LOCKED IN LOWEST POSITION.WILL CONTINUE TO MONITOR ACCORDINGLY.
--- NOTE | 2017-06-10 23:26 | NUR ---
PT PLACED ON BIPAP AT NIGHT. NO RESPIRATORY DISTRESS NOTED AT THIS TIME. VENT PLUGGED INTO RED OUTLET, VENT ALARM WORKING AND AUDIBLE, WILL CONTINUE TO MONITOR PT.
[2017-06-11] VITALS: BP_SYST 122; BP_SYST 126; BP_DIAS 69; BP_DIAS 74
[2017-06-11] MEDS: IPRATROPIUM NEB FS 0.5 MG/2.5 ML AMPUL.NEB NEB SCH ×7 (03:45→23:06)
[2017-06-11] MEDS: ALBUTEROL FS 2.5 MG/3 ML VIAL.NEB NEB SCH ×7 (03:46→23:06)
[2017-06-11 04:00] VITALS: BP 137/89
[2017-06-11] MEDS: IV NS 0.9% 1,000 ML IV PRN (06:15)
--- NOTE | 2017-06-11 06:40 | NUR ---
RN CLOSING NOTES PT IN BED RESTING COMFORTABLY,ON BIPAP,RESPIRATIONS EVEN, UNLABORED. NO S/SX OF PAIN OR DISCOMFORT NOTED. IV SITE INTACT, PATENT.CALL LIGHT WITHIN REACH. BED IN LOWEST POSITION KEPT CLEAN AND COMFORTABLE.ATTENDED ALL NEEDS. WILL ENDORSE TO THE DAY SHIFT.
--- NOTE | 2017-06-11 07:20 | NUR ---
RN NOTES RECEIVED PATIENT ON BIPAP MACHINE, ALERT AND ORIENTED X3, BREATHING EVEN AND UNLABORED, NO S/SX OF DISTRESS NOTED. DENIES PAIN, NEEDS ATTENDED AND MET, CALL LIGHT WITHIN REACH, WILL CONTINUE TO MONITOR.
[2017-06-11 08:00] VITALS: BP 128/65
[2017-06-11] MEDS: DILTIAZEM HCL CD 240 MG PO SCH (09:09)
[2017-06-11] MEDS: methylPREDNISolone SOD SUCC 125 MG/2ML VIAL IV SCH ×4 (09:09→21:00)
[2017-06-11] MEDS: FOLIC ACID 1 MG TABLET PO SCH (09:10)
[2017-06-11] MEDS: FAMOTIDINE (20 MG) 20 MG TABLET PO SCH ×2 (09:10→16:45)
[2017-06-11] MEDS: GUAIFENESIN LA 600 MG TABLET.SA PO SCH ×2 (09:10→21:00)
[2017-06-11] MEDS: THIAMINE HCL 100 MG TABLET PO SCH (09:10)
[2017-06-11] MEDS: APIXABAN 5 MG TABLET PO SCH ×2 (09:10→16:45)
[2017-06-11] MEDS: DIGOXIN 0.125 MG TABLET PO SCH (09:10)
[2017-06-11] MEDS: SERTRALINE HCL 50 MG TABLET PO SCH (09:11)
[2017-06-11] MEDS: NICOTINE PATCH (14MG) 14 MG PATCH.TD24 TD SCH (09:11)
[2017-06-11] MEDS: MUPIROCIN OINT 2% 22 GM TUBE SCH ×2 (09:11→21:02)
[2017-06-11] MEDS: BALANCED SALT IRRIG SOLN COMB2 15 ML BOTTLE LEFTEYE SCH ×2 (09:11→16:45)
[2017-06-11] MEDS: NEO/POLY/DEXA OPHTH OINT 3.5 GM TUBE LEFTEYE SCH ×2 (09:12→16:46)
[2017-06-11 16:00] VITALS: BP 105/66
--- NOTE | 2017-06-11 18:36 | NUR ---
RN NOTES PATIENT ALERT AND ORIENTED X4, BREATHING EVEN AND UNLABORED, ON O2 AT 3LPM VIA NC WITH SPO2 > 92%, NO SHORTNESS OF BREATH. DENIES PAIN AT THIS TIME, PIV ON LEFT AC PATENT AND FLUSHES WELL WITH IVF INFUSING AND TOLERATING WELL, ALL NEEDS ATTENDED AND MET, CALL LIGHT WITHIN REACH, WILL ENDORSE TO REGIONAL SALES ASSOCIATE FOR CESAR.
[2017-06-11 20:00] VITALS: BP 127/73
--- NOTE | 2017-06-11 20:00 | NUR ---
RN NOTES PATIENT ALERT AND ORIENTED X4, BREATHING EVEN AND UNLABORED, ON O2 AT 3LPM VIA NC WITH SPO2 > 92%, NO SHORTNESS OF BREATH. DENIES PAIN AT THIS TIME, PIV ON LEFT AC PATENT AND FLUSHES WELL WITH IVF INFUSING AND TOLERATING WELL, CALL LIGHT WITHIN REACH, BED IN LOW LOCKED POSITION. WILL CONT TO MONITOR.
[2017-06-12] MEDS: IV NS 0.9% 1,000 ML IV PRN ×2 (00:52→17:01)
[2017-06-12] MEDS: ALBUTEROL FS 2.5 MG/3 ML VIAL.NEB NEB SCH ×6 (03:30→23:59)
[2017-06-12] MEDS: IPRATROPIUM NEB FS 0.5 MG/2.5 ML AMPUL.NEB NEB SCH ×6 (03:30→23:59)
[2017-06-12 04:00] VITALS: BP 128/68
--- NOTE | 2017-06-12 06:23 | NUR ---
RN CLOSING NOTES PT RESTING IN BED,PATIENT ALERT AND ORIENTED X4, BREATHING EVEN AND UNLABORED, ON O2 AT 3LPM VIA NC WITH SPO2 > 92%, NO SHORTNESS OF BREATH.PT WAS ON BIPAP OVER NIGHT. DENIES PAIN AT THIS TIME, PIV ON LEFT AC PATENT AND FLUSHES WELL WITH IVF INFUSING AND TOLERATING WELL, CALL LIGHT WITHIN REACH, BED IN LOW LOCKED POSITION. WILL ENDORSE TO AM RN .
[2017-06-12 06:40] LABS: HEMATOCRIT 44 % (33-45); HEMOGLOBIN 14.3 g/dL (11.5-14.8); LYMPHOCYTES # (AUTO) 0.7 /CMM (0.8-4.8); LYMPHOCYTES % (AUTO) 3.3 % (20.0-44.0); MEAN CORPUSCULAR HEMOGLOBIN 31 PG (26.0-33.0); MEAN CORPUSCULAR HGB CONC 33 g/dl (31.0-36.0); MEAN CORPUSCULAR VOLUME 95 fL (82-100); MONOCYTES # (AUTO) 0.2 /CMM (0.1-1.30); MONOCYTES % (AUTO) 0.8 % (2.0-12.0); NEUTROPHILS # (AUTO) 19.7 /CMM (1.8-8.9); NEUTROPHILS % (AUTO) 95.9 % (43.0-81.0); PLATELET COUNT (AUTO) 146 /CMM (150-450); RDW COEFFICIENT OF VARIATION 14.3 (11.5-15.0); RED BLOOD CELL COUNT(AUTO) 4.62 MIL/uL (4.0-5.2); WHITE BLOOD COUNT (AUTO) 20.6 K/uL (4.3-11.0)
[2017-06-12 06:52] LABS: CALCIUM, SERUM 8.4 mg/dL (8.5-10.1); CREATININE 0.8 mg/dL (0.6-1.3); POTASSIUM 4.3 mmol/L (3.5-5.1)
--- NOTE | 2017-06-12 07:15 | NUR ---
RN INITIAL NOTES: REC'D PT AWAKE ON BED, NOT IN ANY DISTRESS, A/O X 4. ON NC/3LPM, NO SOB NOTED. HAS L AC G20 PL W/ NS X 75 CC/HR INFUSING WELL, NO S/SX OF INFECTION/INFILTRATION NOTED. PROVIDED COMFORT & SAFETY MEASURES. BED KEPT LOW & IN LOCKED POS. CALL LIGHT PLACED W/IN REACH. WILL CONTINUE TO MONITOR & ATTEND PT NEEDS.
[2017-06-12 08:00] VITALS: BP 133/81
[2017-06-12] MEDS: methylPREDNISolone SOD SUCC 125 MG/2ML VIAL IV SCH (08:29)
[2017-06-12] MEDS: NICOTINE PATCH (14MG) 14 MG PATCH.TD24 TD SCH (08:30)
[2017-06-12] MEDS: DIGOXIN 0.125 MG TABLET PO SCH (08:30)
[2017-06-12] MEDS: THIAMINE HCL 100 MG TABLET PO SCH (08:31)
[2017-06-12] MEDS: GUAIFENESIN LA 600 MG TABLET.SA PO SCH ×2 (08:31→21:12)
[2017-06-12] MEDS: FOLIC ACID 1 MG TABLET PO SCH (08:31)
[2017-06-12] MEDS: SERTRALINE HCL 50 MG TABLET PO SCH (08:31)
[2017-06-12] MEDS: FAMOTIDINE (20 MG) 20 MG TABLET PO SCH ×2 (08:31→17:00)
[2017-06-12] MEDS: DILTIAZEM HCL CD 240 MG PO SCH (08:32)
[2017-06-12] MEDS: NEO/POLY/DEXA OPHTH OINT 3.5 GM TUBE LEFTEYE SCH ×2 (08:33→17:04)
[2017-06-12] MEDS: MUPIROCIN OINT 2% 22 GM TUBE SCH ×2 (08:33→21:12)
[2017-06-12] MEDS: BALANCED SALT IRRIG SOLN COMB2 15 ML BOTTLE LEFTEYE SCH ×2 (08:35→17:05)
[2017-06-12] MEDS: Z GUARD REMEDY 2 OZ OINT TP PRN (08:36)
[2017-06-12] MEDS: APIXABAN 5 MG TABLET PO SCH ×2 (08:36→17:01)
[2017-06-12] MEDS: PIPERACILLIN /TAZOBACTAM 3.375 G in IV D5W 50 ML IV SCH ×3 (13:21→23:58)
[2017-06-12] MEDS: methylPREDNISolone SOD SUCC 40 MG/ML VIAL IV SCH ×2 (13:21→17:00)
[2017-06-12 16:00] VITALS: BP_SYST 120; BP_SYST 121; BP_DIAS 72; BP_DIAS 74
--- NOTE | 2017-06-12 18:29 | NUR ---
RN CLOSING NOTES: NO ACUTE CHANGES NOTED W/IN SHIFT. PT TOLERATED NC/3LPM, NO SOB NOTED. REINSERTED NEW IV LINE ON R WRIST G22 PL W/ NS X 75 CC/HR INFUSING WELL, NO S/SX OF INFECTION/INFILTRATION NOTED. KEPT WELL RESTED. NEEDS ATTENDED. BED KEPT LOW & IN LOCKED POS. CALL LIGHT PLACED W/IN REACH. WILL ENDORSE TO PM RN FOR CESAR.
--- NOTE | 2017-06-12 19:46 | NUR ---
RN OPENING NOTES RECEIVED REPORT FROM DAYSHIFT RN. FOUND Pt AWAKE, SITTING UP IN BED, WATCHING TV. NO S/S OF ACUTE DISTRESS OR SEVERE SOB NOTED. Pt IS A/OX3. IV ACCESS ON RT WRIST #22G, NS @75ML/HR. SAFETY MEASURES IN PLACE. BED LOW, LOCKED, HOB ELEVATED, SIDE RAILS UP, CALL LIGHT & BEDSIDE TABLE WITHIN REACH. WILL CONTINUE TO MONITOR Pt THROUGHOUT THE NIGHT FOR SAFETY.
[2017-06-12 21:00] VITALS: BP 137/73
--- NOTE | 2017-06-12 22:48 | NUR ---
RN NOTES SPOKE WITH DR. MIDDLETON ON THE FLOOR. INFORMED DR THAT THE Pt REQUESTED A SLEEPING PILL TO HELP HER SLEEP, BUT SAW THAT SHE DID NOT HAVE A PRN ORDER FOR AMBIEN. DR MIDDLETON SAID OK TO ORDER AMBIEN PRN FOR Pt.
[2017-06-13] VITALS: BP 137/73
--- NOTE | 2017-06-13 00:05 | NUR ---
BIPAP THERAPY REFUSED AT THIS TIME. WILL CONTINUE TO MONITOR. GOKUL BRUCE AWARE Addendum: 06/13/17 at 0006 by KYLE WITT RT Amended: Links added.
[2017-06-13] MEDS ORDERED: ZOLPIDEM TARTRATE 5 MG TABLET ONE (00:29)
[2017-06-13] MEDS: ZOLPIDEM TARTRATE 5 MG TABLET PO PRN (00:32)
[2017-06-13] MEDS: ALBUTEROL FS 2.5 MG/3 ML VIAL.NEB NEB SCH ×6 (04:04→23:29)
[2017-06-13] MEDS: IPRATROPIUM NEB FS 0.5 MG/2.5 ML AMPUL.NEB NEB SCH ×6 (04:05→23:29)
[2017-06-13] MEDS: PIPERACILLIN /TAZOBACTAM 3.375 G in IV D5W 50 ML IV SCH ×4 (05:54→23:24)
--- NOTE | 2017-06-13 06:45 | NUR ---
RN CLOSING NOTES NO SIGNIFICANT CHANGES IN Pt's CONDITION. Pt REMAINS STABLE AT THIS TIME. NO S/S OF ACUTE DISTRESS OR SEVERE SOB NOTED DURING THE NIGHT. ALL NEEDS MET AND ATTENDED TO. SAFETY MEASURES IN PLACE. WILL ENDORSE TO DAYSHIFT RN FOR Pt's CESAR.
--- NOTE | 2017-06-13 07:10 | NUR ---
RN INITIAL NOTES: REC'D PT ASLEEP ON BED, EASILY AROUSABLE, NOT IN ANY DISTRESS, A/O X 4. ON NC/3LPM, NO SOB NOTED. HAS R WRIST G22 PL W/ NS X 75 CC/HR INFUSING WELL, NO S/SX OF INFECTION/INFILTRATION NOTED. PROVIDED COMFORT & SAFETY MEASURES. BED KEPT LOW & IN LOCKED POS. CALL LIGHT PLACED W/IN REACH. WILL CONTINUE TO MONITOR & ATTEND PT NEEDS.
[2017-06-13 08:00] VITALS: BP 129/82
[2017-06-13] MEDS: FOLIC ACID 1 MG TABLET PO SCH (08:17)
[2017-06-13] MEDS: DIGOXIN 0.125 MG TABLET PO SCH (08:17)
[2017-06-13] MEDS: THIAMINE HCL 100 MG TABLET PO SCH (08:17)
[2017-06-13] MEDS: NICOTINE PATCH (14MG) 14 MG PATCH.TD24 TD SCH (08:17)
[2017-06-13] MEDS: methylPREDNISolone SOD SUCC 40 MG/ML VIAL IV SCH ×3 (08:17→16:55)
[2017-06-13] MEDS: GUAIFENESIN LA 600 MG TABLET.SA PO SCH ×2 (08:18→21:51)
[2017-06-13] MEDS: SERTRALINE HCL 50 MG TABLET PO SCH (08:18)
[2017-06-13] MEDS: FAMOTIDINE (20 MG) 20 MG TABLET PO SCH ×2 (08:18→16:55)
[2017-06-13] MEDS: DILTIAZEM HCL CD 240 MG PO SCH (08:18)
[2017-06-13] MEDS: BALANCED SALT IRRIG SOLN COMB2 15 ML BOTTLE LEFTEYE SCH ×2 (08:19→16:56)
[2017-06-13] MEDS: MUPIROCIN OINT 2% 22 GM TUBE SCH ×2 (08:19→21:51)
[2017-06-13] MEDS: NEO/POLY/DEXA OPHTH OINT 3.5 GM TUBE LEFTEYE SCH ×2 (08:19→16:56)
[2017-06-13] MEDS: Z GUARD REMEDY 2 OZ OINT TP PRN (08:20)
[2017-06-13] MEDS: APIXABAN 5 MG TABLET PO SCH ×2 (08:21→16:55)
[2017-06-13] MEDS: IV NS 0.9% 1,000 ML IV PRN (08:58)
--- NOTE | 2017-06-13 11:56 | NUR ---
RN NOTES: PT SEEN & EXAMINED BY DR. ANTONIO W/ ORDERS TO DECREASE O2 VIA NC AT 2LPM.
[2017-06-13 16:00] VITALS: BP 136/77
--- NOTE | 2017-06-13 19:00 | NUR ---
RN CLOSING NOTES: NO ACUTE CHANGES NOTED W/IN SHIFT. PT TOLERATED NC/2LPM, NO SOB NOTED. IV LINE ON R WRIST G22 PL W/ NS X 75 CC/HR INFUSING WELL, KEPT PATENT & INTACT W/ NO S/SX OF INFECTION/INFILTRATION NOTED. KEPT WELL RESTED. NEEDS ATTENDED. BED KEPT LOW & IN LOCKED POS. CALL LIGHT PLACED W/IN REACH. ENDORSED TO PM RN FOR CESAR.
--- NOTE | 2017-06-13 19:30 | NUR ---
RN/MS NOTES: RECEIVED PT. A/O X 4 SITTING IN BED WATCHING TV. DENIES ANY C/O CHEST PAIN OR SOB AT PRESENT. ON O2 @ 2LPM VIA N/C SAT. 95 %. HAS R WRIST G22 PATENT AND INTACT W/ NO S/S OF INFECTION/INFILTRATION NOTED. W/ NS @ 75 CC/HR INFUSING WELL. PROVIDED COMFORT & SAFETY MEASURES. BED KEPT LOW & IN LOCKED POS. CALL LIGHT PLACED W/IN REACH. WILL CONTINUE TO MONITOR & ATTEND PT NEEDS.
[2017-06-13 20:00] VITALS: BP 130/74
[2017-06-14] MEDS: ZOLPIDEM TARTRATE 5 MG TABLET PO PRN (00:11)
[2017-06-14] MEDS: IV NS 0.9% 1,000 ML IV PRN (00:13)
[2017-06-14] MEDS: IPRATROPIUM NEB FS 0.5 MG/2.5 ML AMPUL.NEB NEB SCH ×5 (03:57→20:35)
[2017-06-14] MEDS: ALBUTEROL FS 2.5 MG/3 ML VIAL.NEB NEB SCH ×5 (03:57→20:35)
[2017-06-14 04:00] VITALS: BP 156/84
[2017-06-14] MEDS: PIPERACILLIN /TAZOBACTAM 3.375 G in IV D5W 50 ML IV SCH ×3 (05:00→18:30)
--- NOTE | 2017-06-14 06:51 | NUR ---
RN/MS NOTES: PT. IN BED SLEEPING W/ RESPIRATIONS EVEN AND UNLABORED. REFUSED BIPAP AT [facility].
[2017-06-14 06:58] LABS: HEMATOCRIT 44 % (33-45); HEMOGLOBIN 14.2 g/dL (11.5-14.8); LYMPHOCYTES # (AUTO) 0.5 /CMM (0.8-4.8); LYMPHOCYTES % (AUTO) 1.9 % (20.0-44.0); MEAN CORPUSCULAR HEMOGLOBIN 31 PG (26.0-33.0); MEAN CORPUSCULAR HGB CONC 33 g/dl (31.0-36.0); MEAN CORPUSCULAR VOLUME 95 fL (82-100); MONOCYTES # (AUTO) 0.6 /CMM (0.1-1.30); NEUTROPHILS # (AUTO) 27.1 /CMM (1.8-8.9); NEUTROPHILS % (AUTO) 96.1 % (43.0-81.0); PLATELET COUNT (AUTO) 133 /CMM (150-450); RED BLOOD CELL COUNT(AUTO) 4.59 MIL/uL (4.0-5.2); WHITE BLOOD COUNT (AUTO) 28.2 K/uL (4.3-11.0)
[2017-06-14 07:29] LABS: CREATININE 0.9 mg/dL (0.6-1.3); MAGNESIUM 2.3 mg/dL (1.8-2.4); PHOSPHORUS 4.3 mg/dL (2.5-4.9); POTASSIUM 4.2 mmol/L (3.5-5.1)
[2017-06-14 08:00] VITALS: BP_SYST 114; BP_SYST 138; BP_DIAS 77; BP_DIAS 84
[2017-06-14] MEDS: methylPREDNISolone SOD SUCC 40 MG/ML VIAL IV SCH ×3 (09:00→17:22)
[2017-06-14] MEDS: GUAIFENESIN LA 600 MG TABLET.SA PO SCH ×2 (09:37→20:55)
[2017-06-14] MEDS: SERTRALINE HCL 50 MG TABLET PO SCH (09:37)
[2017-06-14] MEDS: DILTIAZEM HCL CD 240 MG PO SCH (09:40)
[2017-06-14] MEDS: NEO/POLY/DEXA OPHTH OINT 3.5 GM TUBE LEFTEYE SCH ×2 (09:45→17:25)
[2017-06-14] MEDS: BALANCED SALT IRRIG SOLN COMB2 15 ML BOTTLE LEFTEYE SCH ×2 (09:45→17:25)
[2017-06-14] MEDS: APIXABAN 5 MG TABLET PO SCH ×2 (09:46→17:25)
[2017-06-14] MEDS: FOLIC ACID 1 MG TABLET PO SCH (09:46)
[2017-06-14] MEDS: MUPIROCIN OINT 2% 22 GM TUBE SCH ×2 (09:46→20:55)
[2017-06-14] MEDS: THIAMINE HCL 100 MG TABLET PO SCH (09:46)
[2017-06-14] MEDS: NICOTINE PATCH (14MG) 14 MG PATCH.TD24 TD SCH (09:46)
[2017-06-14] MEDS: DIGOXIN 0.125 MG TABLET PO SCH (09:46)
[2017-06-14] MEDS: FAMOTIDINE (20 MG) 20 MG TABLET PO SCH ×2 (09:46→17:25)
--- NOTE | 2017-06-14 09:51 | NUR ---
Noted patient to be efibrile and no chief compliant at this point and time. Noted wbc 28.6, patien is on solumedrol 60 mg iv q 6 hrs.
[2017-06-14 16:00] VITALS: BP 109/86
[2017-06-14] MEDS ORDERED: hydrALAZINE HCL 25 MG TABLET PO PRN (17:00)
--- NOTE | 2017-06-14 19:30 | NUR ---
RN/MS NOTES: RECEIVED PT. A/O X 4 SITTING IN BED WATCHING TV. DENIES ANY C/O CHEST PAIN OR SOB AT PRESENT. ON O2 @ 2LPM VIA N/C SAT. 93%. HAS R WRIST G22 PATENT AND INTACT W/ NO S/S OF INFECTION/INFILTRATION NOTED. W/ NS @ 75 CC/HR INFUSING WELL. PROVIDED COMFORT & SAFETY MEASURES. BED KEPT LOW & IN LOCKED POS. CALL LIGHT PLACED W/IN REACH. WILL CONTINUE TO MONITOR & ATTEND PT NEEDS.
[2017-06-14 20:00] VITALS: BP 124/75
[2017-06-15] MEDS: PIPERACILLIN /TAZOBACTAM 3.375 G in IV D5W 50 ML IV SCH ×4 (00:16→18:04)
[2017-06-15] MEDS: IPRATROPIUM NEB FS 0.5 MG/2.5 ML AMPUL.NEB NEB SCH ×6 (00:20→19:41)
[2017-06-15] MEDS: ALBUTEROL FS 2.5 MG/3 ML VIAL.NEB NEB SCH ×6 (00:20→19:41)
[2017-06-15] MEDS ORDERED: ZOLPIDEM TARTRATE 5 MG TABLET PO PRN (01:00)
[2017-06-15 04:00] VITALS: BP 166/77
[2017-06-15 06:54] LABS: HEMATOCRIT 46 % (33-45); HEMOGLOBIN 14.7 g/dL (11.5-14.8); LYMPHOCYTES # (AUTO) 0.4 /CMM (0.8-4.8); LYMPHOCYTES % (AUTO) 1.5 % (20.0-44.0); MEAN CORPUSCULAR HEMOGLOBIN 31 PG (26.0-33.0); MEAN CORPUSCULAR HGB CONC 32 g/dl (31.0-36.0); MEAN CORPUSCULAR VOLUME 95 fL (82-100); MONOCYTES # (AUTO) 0.5 /CMM (0.1-1.30); MONOCYTES % (AUTO) 1.8 % (2.0-12.0); NEUTROPHILS # (AUTO) 28.9 /CMM (1.8-8.9); NEUTROPHILS % (AUTO) 96.7 % (43.0-81.0); PLATELET COUNT (AUTO) 134 /CMM (150-450); RDW COEFFICIENT OF VARIATION 14.4 (11.5-15.0); WHITE BLOOD COUNT (AUTO) 29.9 K/uL (4.3-11.0)
--- NOTE | 2017-06-15 07:04 | NUR ---
RN/MS NOTES: NO ACUTE CHANGES NOTED DURING THIS SHIFT. REPORT GIVEN TO AM NURSE FOR CESAR.
[2017-06-15 07:08] LABS: CALCIUM, SERUM 8.3 mg/dL (8.5-10.1); CREATININE 0.9 mg/dL (0.6-1.3); MAGNESIUM 2.2 mg/dL (1.8-2.4); PHOSPHORUS 3.9 mg/dL (2.5-4.9)
[2017-06-15 08:00] VITALS: BP 122/71
[2017-06-15] MEDS: THIAMINE HCL 100 MG TABLET PO SCH (09:06)
[2017-06-15] MEDS: GUAIFENESIN LA 600 MG TABLET.SA PO SCH (09:06)
[2017-06-15] MEDS: SERTRALINE HCL 50 MG TABLET PO SCH (09:06)
[2017-06-15] MEDS: DILTIAZEM HCL CD 240 MG PO SCH (09:07)
[2017-06-15] MEDS: DIGOXIN 0.125 MG TABLET PO SCH (09:07)
[2017-06-15] MEDS: FAMOTIDINE (20 MG) 20 MG TABLET PO SCH ×2 (09:07→17:05)
[2017-06-15 09:08] LABS: LYMPHOCYTES % (MANUAL) 3 % (16-48); MONOCYTES % (MANUAL) 5 % (0-11.0); NEUTROPHILS % (MANUAL) 92 (42-76)
[2017-06-15] MEDS: methylPREDNISolone SOD SUCC 40 MG/ML VIAL IV SCH ×2 (09:08→12:23)
[2017-06-15] MEDS: FOLIC ACID 1 MG TABLET PO SCH (09:08)
[2017-06-15] MEDS: APIXABAN 5 MG TABLET PO SCH ×2 (09:11→17:06)
[2017-06-15] MEDS: NICOTINE PATCH (14MG) 14 MG PATCH.TD24 TD SCH (09:11)
[2017-06-15] MEDS: NEO/POLY/DEXA OPHTH OINT 3.5 GM TUBE LEFTEYE SCH ×2 (09:20→17:13)
[2017-06-15] MEDS: BALANCED SALT IRRIG SOLN COMB2 15 ML BOTTLE LEFTEYE SCH ×2 (09:21→17:14)
[2017-06-15] MEDS: MUPIROCIN OINT 2% 22 GM TUBE SCH (09:22)
[2017-06-15] MEDS ORDERED: LEVO750T21 PO (13:29)
[2017-06-15] MEDS ORDERED: PRED50TA PO (13:29)
[2017-06-15] MEDS ORDERED: PRED5TAB48 PO (13:29)
[2017-06-15] MEDS ORDERED: PRED20TA PO ×2 (13:29→13:30)
[2017-06-15] MEDS ORDERED: predniSONE 20 MG TABLET PO SCH (13:30)
[2017-06-15 14:30] LABS: ABG BASE EXCESS 3.7 mmol/L; ABG OXYGEN SATURATION 95.4 % (92.0-98.5); ABG PCO2 48.2 mmHg (35.0-45.0); ABG PH 7.403 (7.350-7.450); ABG PO2 80.4 mmHg (75.0-100.0); AaDO2 33.4 mmHg; COHb 0.8 % (0.5-1.5); MetHb 0.2 % (0.0-1.5); O2Hb 94.4 % (94.0-97.0); SITE, ABG Right Radial; VENT MODE, BG NC 2L
[2017-06-15 16:00] VITALS: BP 132/75
[2017-06-15] MEDS ORDERED: LEVOFLOXACIN 750 MG /D5W 150ML 750 MG in PREMIX 1 EA IV SCH (16:00)
[2017-06-15] MEDS ORDERED: PNEUMOCOCCAL 23-VAL P-SAC VAC 0.5 ML VIAL SQ ONE (18:00)
--- NOTE | 2017-06-15 19:30 | NUR ---
RN/MS NOTES: RECEIVED REPORT FROM NURSE SIDHU REGARDING PT. IS READY FOR DISCHARGE. HL REMOVED PER NURSE SIDHU. PT. IS RECEIVING BREATHING TREATMENT.
[2017-06-15 20:00] VITALS: BP 136/78
--- NOTE | 2017-06-15 20:45 | NUR ---
RN/MS NOTES. PT. IS SCHEDULED TO BE DISCHARGED TO [facility]. PT. LEFT IN STABLE CONDITION VIA AMBULANCE.
== END 2017-06-15 20:45 | DRG 189 ==
LOC: TELE 06:39 → ICU 06-04 10:05 → TELE-TD 06-08 13:42 → TELE1 06-09 10:41 → MEDSG1 06-11 10:49
PROVIDERS: ADMIT Nurse Practitioner Acute Care; ATTEND Nurse Practitioner Acute Care
PROC: 5A09557 Assistance with Respiratory Ventilation, Greater than 96 Consecutive Hours, Continuous Positive Airway Pressure (ICD-10-PCS; principal; 2017-06-04)
DX: J96.22 Acute and chronic respiratory failure with hypercapnia (principal); N17.9 Acute kidney failure, unspecified; E87.2 Acidosis; E44.0 Moderate protein-calorie malnutrition; R53.2 Functional quadriplegia; D68.59 Other primary thrombophilia; D69.6 Thrombocytopenia, unspecified; I48.91 Unspecified atrial fibrillation; E87.5 Hyperkalemia; J44.0 Chronic obstructive pulmonary disease with (acute) lower respiratory infection; J44.1 Chronic obstructive pulmonary disease with (acute) exacerbation; C44.90 Unspecified malignant neoplasm of skin, unspecified; F17.200 Nicotine dependence, unspecified, uncomplicated; F32.9 Major depressive disorder, single episode, unspecified; F17.210 Nicotine dependence, cigarettes, uncomplicated; Z66 Do not resuscitate; Z90.710 Acquired absence of both cervix and uterus; Z79.01 Long term (current) use of anticoagulants; Z79.899 Other long term (current) drug therapy; J20.9 Acute bronchitis, unspecified; T38.0X5A Adverse effect of glucocorticoids and synthetic analogues, initial encounter; Y92.129 Unspecified place in nursing home as the place of occurrence of the external cause; Z68.32 Body mass index [BMI] 32.0-32.9, adult; E66.9 Obesity, unspecified; E87.6 Hypokalemia; I70.0 Atherosclerosis of aorta
CPT/HCPCS: 36415; 36600; 71045-TC; 80048-TC; 80053-TC; 80061-TC; 80162-TC; 82803-TC; 83735-TC; 84100-TC; 84484-TC; 85025-TC; 87081-TC; 90732; 93307-TC; 94762-TC; 94799-TC; A4216; A4606; A6402; J0456; J1956; J2543; J2920; J2930; J3490; J7030; J7050; J7060; Z7610